=== PATIENT | female | born 1995 | race African-American/Black ===

== ENCOUNTER 2022-10-05 09:26 | Emergency (ER) | payer OTHER ==
[2022-10-05 10:35] LABS: #Monocytes 0.3 10x3/uL (0.0-1.1); #Neutrophils 7.1 10x3/uL (1.5-8.4); %Basophils 0.3 % (0.0-2.0); %Eosinophils 0.1 % (0.0-6.0); %Lymphocytes 16.1 % (18.0-47.0); %Monocytes 3.6 % (0.0-10.0); %Neutrophils 79.7 % (40.0-75.0); Mean Corpuscular HGB CONC 34.9 g/dL (32.0-36.0); Mean Corpuscular Hemoglobin 32.5 pg (27.0-33.0); Mean Platelet Volume 10.3 fl (7.4-10.4); Platelet Count 316 10x3/uL (150-450); RBC Distribution Width 11.4 % (11.5-14.5); White Blood Cell (WBC) Count 8.9 10x3/uL (3.5-10.5)
[2022-10-05 10:47] LABS: ALT (SGPT) 21 U/L (8-55); AST (SGOT) 23 U/L (5-34); Albumin 4.6 g/dL (3.5-5.0); Alkaline Phosphatase 91 U/L (40-110); Anion Gap 13 mmol/L (10-20); BUN (Urea Nitrogen) 7 mg/dL (7.0-18.7); Bilirubin, Total 1.4 mg/dL (0.2-1.2); Calc. Creatinine Clearance 0 mL/min (70-130); Calcium 9.6 mg/dL (7.8-10.44); Carbon Dioxide 21 mmol/L (22-29); Chloride 109 mmol/L (98-107); Estimated GFR 110; Globulin 3.5 g/dL (2.4-3.5); Glucose 108 mg/dL (70-105); Potassium 3.6 mmol/L (3.5-5.1); Protein, Total 8.1 g/dL (6.0-8.3); Sodium 139 mmol/L (136-145)
[2022-10-05] MEDS ORDERED: Ondansetron PF 4 MG/2 ML Vial ONE (18:35)
== END 2022-10-05 12:23 | disposition left against medical advice (07) ==
LOC: CSHERS 09:26
DX: Z53.21 Procedure and treatment not carried out due to patient leaving prior to being seen by health care provider (principal)
CPT/HCPCS: 36415; 80053; 85025; J2405

== ENCOUNTER 2022-10-05 14:49 | Emergency (ER) | payer OTHER ==
[2022-10-05 18:23] LABS: #Monocytes 0.4 10x3/uL (0.0-1.1); #Neutrophils 7.9 10x3/uL (1.5-8.4); %Basophils 0.2 % (0.0-2.0); %Lymphocytes 18.4 % (18.0-47.0); %Neutrophils 77.1 % (40.0-75.0); Hemoglobin 13.1 g/dL (12.0-15.5); Mean Corpuscular HGB CONC 34.8 g/dL (32.0-36.0); Mean Corpuscular Hemoglobin 32.6 pg (27.0-33.0); Mean Corpuscular Volume 93.5 fl (81.6-98.3); Mean Platelet Volume 10.3 fl (7.4-10.4); Platelet Count 356 10x3/uL (150-450); RBC Distribution Width 11.4 % (11.5-14.5); Red Blood Cell (RBC) Count 4.02 10x6/uL (3.90-5.03); White Blood Cell (WBC) Count 10.2 10x3/uL (3.5-10.5)
[2022-10-05 18:34] LABS: ALT (SGPT) 21 U/L (8-55); AST (SGOT) 20 U/L (5-34); Albumin 4.7 g/dL (3.5-5.0); Alkaline Phosphatase 95 U/L (40-110); Anion Gap 14 mmol/L (10-20); BUN (Urea Nitrogen) 7 mg/dL (7.0-18.7); Bilirubin, Total 1.9 mg/dL (0.2-1.2); Calc. Creatinine Clearance 0 mL/min (70-130); Calcium 9.7 mg/dL (7.8-10.44); Carbon Dioxide 19 mmol/L (22-29); Chloride 110 mmol/L (98-107); Estimated GFR 111; Globulin 3.2 g/dL (2.4-3.5); Glucose 97 mg/dL (70-105); Potassium 3.9 mmol/L (3.5-5.1); Protein, Total 7.9 g/dL (6.0-8.3); Sodium 139 mmol/L (136-145)
[2022-10-05 20:01] LABS: BHCG - Serum Negative (NEGATIVE); Pregs Control Background? CLEAR/WHITE (CLR/WHITE); Pregs Control Bar Appear? YES (CONTROL BAR)
[2022-10-05] MEDS ORDERED: NIFEdipine XL 30 MG TAB ONE (20:17)
== END 2022-10-05 19:55 | disposition home or self-care (01) ==
LOC: CSHERS 14:49
DX: U07.1 COVID-19 (principal); I10 Essential (primary) hypertension; G43.909 Migraine, unspecified, not intractable, without status migrainosus
CPT/HCPCS: 36415; 80053; 84703; 85025; 87804; 96360; J2405; U0003; U0005

== ENCOUNTER 2022-11-23 17:39 | Emergency (ER) | payer OTHER | END 2022-11-23 19:13 | disposition home or self-care (01) | LOC: CSHERS 17:39 | DX: L05.01 Pilonidal cyst with abscess (principal); I10 Essential (primary) hypertension; Z79.899 Other long term (current) drug therapy | CPT/HCPCS: 10080 ==

== ENCOUNTER 2023-04-23 20:46 | Emergency (ER) | payer OTHER ==
[2023-04-23] MEDS ORDERED: Metoclopramide HCl 10 MG/2 ML VIAL ONE (21:36)
[2023-04-23] MEDS ORDERED: diphenhydrAMINE 50 MG/ML VIAL ONE (21:37)
[2023-04-23 22:22] LABS: #Basophils 0.1 10x3/uL (0.0-0.2); #Eosinphils 0.1 10x3/uL (0.0-0.5); #Monocytes 0.7 10x3/uL (0.0-1.1); #Neutrophils 9.6 10x3/uL (1.5-8.4); %Basophils 0.5 % (0.0-2.0); %Eosinophils 0.4 % (0.0-6.0); %Monocytes 5.5 % (0.0-10.0); %Neutrophils 72.4 % (40.0-75.0); Hematocrit 40.2 % (34.9-44.5); Hemoglobin 13.8 g/dL (12.0-15.5); Mean Corpuscular HGB CONC 34.3 g/dL (32.0-36.0); Mean Corpuscular Volume 93.3 fl (81.6-98.3); Mean Platelet Volume 9.9 fl (7.4-10.4); Platelet Count 369 10x3/uL (150-450); RBC Distribution Width 11.3 % (11.5-14.5); Red Blood Cell (RBC) Count 4.31 10x6/uL (3.90-5.03); White Blood Cell (WBC) Count 13.2 10x3/uL (3.5-10.5)
[2023-04-23 22:33] LABS: ALT (SGPT) 32 U/L (8-55); AST (SGOT) 29 U/L (5-34); Alkaline Phosphatase 99 U/L (40-110); Anion Gap 17 mmol/L (10-20); BHCG - Serum Negative (NEGATIVE); BUN (Urea Nitrogen) 9 mg/dL (7.0-18.7); Bilirubin, Total 1.9 mg/dL (0.2-1.2); Calc. Creatinine Clearance 0 mL/min (70-130); Calcium 9.4 mg/dL (7.8-10.44); Carbon Dioxide 19 mmol/L (22-29); Chloride 103 mmol/L (98-107); Estimated GFR 106; Globulin 3.7 g/dL (2.4-3.5); Glucose 99 mg/dL (70-105); Potassium 3.3 mmol/L (3.5-5.1); Pregs Control Background? CLEAR/WHITE (CLR/WHITE); Pregs Control Bar Appear? YES (CONTROL BAR); Protein, Total 8.7 g/dL (6.0-8.3); Sodium 136 mmol/L (136-145)
[2023-04-23 22:36] LABS: SARS-CoV-2 NAA Rapid Test Not Detected (NotDetected)
== END 2023-04-23 23:10 | disposition home or self-care (01) ==
LOC: CSHERS 20:46
DX: R51.9 Headache, unspecified (principal); I10 Essential (primary) hypertension; Z20.822 Contact with and (suspected) exposure to COVID-19
CPT/HCPCS: 80053; 84703; 85025; 96374; 96375; J1200; J2765

== ENCOUNTER 2023-04-25 00:44 | Emergency (ER) | payer OTHER ==
[2023-04-25] MEDS ORDERED: Dexamethasone 10 MG/ML VIAL ONE (01:25)
[2023-04-25] MEDS ORDERED: Prochlorperazine 10 MG/2 ML VIAL ONE (01:25)
[2023-04-25] MEDS ORDERED: diphenhydrAMINE 50 MG/ML VIAL ONE (01:26)
[2023-04-25] MEDS ORDERED: Ketorolac Tromethamine 30 MG/ML VIAL ONE (01:26)
== END 2023-04-25 02:55 | disposition home or self-care (01) ==
LOC: CSHERS 00:44
DX: G43.909 Migraine, unspecified, not intractable, without status migrainosus (principal); R11.2 Nausea with vomiting, unspecified; I10 Essential (primary) hypertension
CPT/HCPCS: 96374; 96375; J0780; J1100; J1200; J1885

== ENCOUNTER 2023-10-01 19:05 | Emergency (ER) | payer OTHER, SELFPAY ==
[2023-10-01 19:52] LABS: Bilirubin Neg (Negative); Blood, Urine 10 (Negative); Clarity Clear (Clear); Glucose, Urine (Dipstick) Normal (Negative); Ketone, Urine Negative (Negative); Leukocyte Negative (Negative); Nitrite Negative (Negative); Protein, Urine (Dipstick) 30 mg/dl (Neg-Trace); Specific Gravity, Urine 1.015 (1.005-1.030)
[2023-10-01 19:54] LABS: Pregnancy Test - Urine (BHCG) Negative (Negative); Pregu Control Background? CLEAR/WHITE (CLR/WHITE); Pregu Control Bar Appear? YES (CONTROL BAR); Specific Gravity 1.015 (1.002-1.036)
[2023-10-01] MEDS ORDERED: cefTRIAXone (ROCEPHIN) 500 MG VIAL ONE (20:05)
[2023-10-01] MEDS ORDERED: Sterile Water 10 ML ONE (20:06)
[2023-10-01] MEDS ORDERED: Ibuprofen 200 MG TAB ONE (20:14)
[2023-10-01 20:19] LABS: Bacteria/HPF 2+ HPF (None Seen); CAUTI Indications for Culture Pelvic or flank pain; Mucous/LPF 3+ LPF (<2+); RBC/HPF 0-3 HPF (0-3)
[2023-10-01 20:20] LABS: Urine Culture Reflex No No
[2023-10-02 16:28] LABS: Chlam.trachomatis by PCR,Urine Not Detected (NotDetected); GC N.gonorrhoeae PCR,UrineVOID Not Detected (NotDetected)
== END 2023-10-01 20:18 | disposition home or self-care (01) ==
LOC: CSHERS 19:05
DX: Z20.2 Contact with and (suspected) exposure to infections with a predominantly sexual mode of transmission (principal); I10 Essential (primary) hypertension
CPT/HCPCS: 81001; 81025; 87491; 87591; 96372; 99283; J0696

== ENCOUNTER 2025-08-02 12:27 | Emergency (ER) | payer SELFPAY | END 2025-08-02 13:55 | disposition home or self-care (01) | LOC: CSHERS 12:27 | DX: J11.1 Influenza due to unidentified influenza virus with other respiratory manifestations (principal); I10 Essential (primary) hypertension | CPT/HCPCS: 87428; 99283 ==